=== PATIENT | female | born 1940 | race Caucasian/White ===

== ENCOUNTER 2016-10-09 08:35 | Day surgery (SDC) | payer MEDICARE, BC ==
[~2016-10-09 08:35] MED LIST: PROPOFOL 500 MG/50 ML EMU IV ONE
[2016-10-09 09:55] VITALS: O2SAT 98
[2016-10-09 10:06] VITALS: BP 139/77; PULSE 68; RESP 18; TEMP 97.4
[2016-10-09] MEDS: HEPARIN SODIUM 100 U/ML SOL IV ONE (10:35)
[2016-10-09] MEDS: SODIUM CHLORIDE 0.9% FLUSH 10 ML SOL IV ONE (10:35)
== END 2016-10-09 10:40 | disposition home or self-care (01) | DRG 951 ==
LOC: SURG 08:35
PROVIDERS: ATTEND Surgery
DX: Z12.11 Encounter for screening for malignant neoplasm of colon (principal); Z85.038 Personal history of other malignant neoplasm of large intestine
CPT/HCPCS: G0105; J1644

== ENCOUNTER 2017-03-28 10:38 | Emergency (ER) | payer MEDICARE, BC ==
[2017-03-28 10:55] VITALS: RESP 16; TEMP 96.9
[2017-03-28] MEDS ORDERED: ACETAMINOPHEN 325 MG PO ONE (11:10)
[2017-03-28] MEDS ORDERED: ACETAMINOPHEN 500 MG 500 MG TAB ONE (11:11)
[2017-03-28] MEDS ORDERED: CLONIDINE 0.1 MG TAB PO ONE (11:25)
[2017-03-28] MEDS ORDERED: CLONIDINE 0.1 MG TAB ONE (11:44)
[2017-03-28 12:23] VITALS: BP 110/60; PULSE 57; O2SAT 96
== END 2017-03-28 12:40 | disposition home or self-care (01) | DRG 149 ==
LOC: ED 10:38
DX: R42 Dizziness and giddiness (principal)
CPT/HCPCS: 70450; 93005; 99282; 99284

== ENCOUNTER 2017-06-19 09:52 | Day surgery (SDC) | payer MEDICARE, BC ==
[2017-06-19] MEDS ORDERED: LIDOCAINE HCL 1% MPF SOL ONE (10:07)
[2017-06-19] MEDS ORDERED: PROPOFOL 10 MG/ML EMU IV ONE (10:07)
[2017-06-19] MEDS ORDERED: ONDANSETRON HCL 4 MG/2 ML SOL ONE (10:07)
[2017-06-19] MEDS ORDERED: MIDAZOLAM 2 MG/2 ML SOL ONE (10:08)
[2017-06-19] MEDS ORDERED: FENTANYL 100MCG/2ML SOL ONE (10:08)
[2017-06-19] MEDS ORDERED: LIDOCAINE HCL 2% MPF SOL ONE (10:50)
[2017-06-19] MEDS ORDERED: BUPIVACAINE HCL 0.5% MPF 10 ML SOL ONE (10:50)
[2017-06-19 13:10] VITALS: BP 143/60; PULSE 66; RESP 20; TEMP 97; O2SAT 96
== END 2017-06-19 13:35 | disposition home or self-care (01) | DRG 74 ==
LOC: SURG 09:52
PROVIDERS: ATTEND Orthopaedic Surgery
DX: G56.01 Carpal tunnel syndrome, right upper limb (principal)
CPT/HCPCS: J2250; J2405; J3010; J2001; J2704

== ENCOUNTER 2019-01-25 19:38 | Emergency (ER) | payer MEDICARE, BC | END 2019-01-25 23:02 | disposition home or self-care (01) | LOC: ED 23:02 ==